=== PATIENT | male | born 1955 | race Caucasian/White ===

== ENCOUNTER → 2017-02-15 | Outpatient (CLI) | payer BC, MEDICARE ==
--- NOTE | ~2017-02-15 | ENPV ---
Carotid Duplex Study Demographics Patient Name CARLOS HASKINS Date of Study 02/15/2017 Patient Number [id number] Gender Male Date of 1955 Age 61 Visit Number [id number] Height Accession Number [id number] Weight Room Number BSA BMI Referring Chetan Herrmann MD Interpreting Miesha Herrmann MD Physician Physician Physician Ordering Physician Chetan Herrmann Motor Room Controller Apartment Community Manager Jodee Guido [facility], [facility] Conclusions Summary The right internal carotid artery has mild, 1-39%, plaque and stenosis. The right vertebral artery is present with antegrade flow. The left internal carotid artery has mild, 1-39%, plaque and stenosis. The left vertebral artery is present with antegrade high resistive flow. Procedure Type of Study: Cerebral:Carotid, Carotid Doppler Bilateral. Indications for Study:Carotid disease. Additional Indications:Hx Lt CEA Appropriate Use Criteria:9 Allergies - No known allergies. Blood Pressure:Right arm 145/68 mmHg.Left arm 138/65 mmHg. Patient Status:Routine. Study Location:Vascular Lab. Technical Quality:Adequate visualization. Velocities are measured in cm/s ; Diameters are measured in cm Carotid Right Measurements Carotid Left Measurements + +--------+--------+ + + + +--------+ --------+ + + !Location !PSV !EDV !Angle !%Stenosis ! !Location !PSV ! EDV !Angle !%Stenosis ! + +--------+--------+ + + + +--------+ --------+ + + !Prox CCA !144 !15 !60 ! ! !Prox CCA !116 ! 19 !60 ! ! + +--------+--------+ + + + +--------+ --------+ + + !Dist CCA !110 !13 !60 ! ! !Dist CCA !119 ! 20 !60 ! ! + +--------+--------+ + + + +--------+ --------+ + + !Prox ICA !106 !25 ! ! ! !Prox ICA !69 ! 15 !60 ! ! + +--------+--------+ + + + +--------+ --------+ + + !Dist ICA !91 !20 !60 ! ! !Dist ICA !92 ! 25 !60 ! ! + +--------+--------+ + + + +--------+ --------+ + + !Prox ECA !138 ! !60 ! ! !Prox ECA !228 ! 18 !60 ! ! + +--------+--------+ + + + +--------+ --------+ + + !Vertebral !60 !12 !60 ! ! !Vertebral !69 ! 8 !60 ! ! + +--------+--------+ + + + +--------+ --------+ + + !Subclavian !267 ! !60 ! ! !Subclavian !195 ! !60 ! ! + +--------+--------+ + + + +--------+ --------+ + + - There is antegrade vertebral flow noted on the right side. - There is antegrade verte bral flow noted on the left side. - Add'l Measurements:Subclavian PRV 267 cm/sICAPSV/CCAPSV - Add'l Measurements:Subcl rehana PRV 195 cm/sICAPSV/CCAPSV 0.74.ICAEDV/CCAEDV 1.67. 0.79.ICAEDV/CCAEDV 1.32. Impressions Right Impression The right bifurcation is deep. Left Impression There is a mild amount of smooth heterogeneous plaque in the left internal carotid artery . Signature dtt: Ruiz Whiteside dtd: 02/15/17 1250 Physician Self Edit
== END | disposition disaster alternative care site (69) ==
LOC: GCAR 12:44
DX: I65.22 Occlusion and stenosis of left carotid artery (principal)